=== PATIENT | female | born 1990 | race Two or more races ===

== ENCOUNTER 2020-04-10 10:23 | Emergency (ER) | payer OTHER ==
[~2020-04-10] VITALS: Ht 160 cm; Wt 65.0 kg
[2020-04-10 11:04] VITALS: BP 124/78
--- NOTE | 2020-04-10 11:30 | RAD ---
Examination: XR CHEST 1V History: Reason: cough, sore throat / Comparison/Correlation: None Findings: Frontal view chest was obtained. Heart size and pulmonary vasculature are normal. No infilt rate or effusion. No pneumothorax. Bony structures are unremarkable. Impression: No active disease. Electronically signed by: Yaw Bishop MD (04/10/2020 11:27 AM) [id number]
--- NOTE | 2020-04-10 11:53 | PHYS DOC ---
Past Medical History Past Medical History: No Pertinent History Past Surgical History: No Surgical History Smoking Status: Never Smoker Alcohol Use: None General Adult EDM: Chief Complaint: SORE THROAT HPI: HPI: Patient is a 30 year old female who presented to ER for evaluation of productive cough with green sputum, sore throat, nasal congestion for about 4 days. Patient is not sure if she been exposed to anybody who tested positive for COVID-19. Patient denies any abdominal pain, no nausea vomiting. Review of Systems: Review of Systems: Constitutional: Denies fever or chills. [] Eyes: Denies change in visual acuity. [] HENT: Positive for nasal congestion and sore throat Respiratory: Positive for cough, no trouble breathing Cardiovascular: Denies chest pain or edema. [] GI: Denies abdominal pain, nausea, vomiting, bloody stools or diarrhea. [] : Denies dysuria. [] Musculoskeletal: Denies back pain or joint pain. [] Integument: Denies rash. [] Neurologic: Denies headache, focal weakness or sensory changes. [] Endocrine: Denies polyuria or polydipsia. [] Lymphatic: Denies swollen glands. [] Psychiatric: Denies depression or anxiety. [] Heart Score: Risk Factors: Risk Factors: DM, Current or recent (<one month) smoker, HTN, HLP, family history of CAD, obesity. Risk Scores: Score 0 - 3: 2.5% MACE over next 6 weeks - Discharge Home Score 4 - 6: 20.3% MACE over next 6 weeks - Admit for Clinical Observation Score 7 - 10: 72.7% MACE over next 6 weeks - Early Invasive Strategies Physical Exam: PE: Constitutional: Well developed, well nourished, no acute distress, non-toxic appearance. [] HENT: Normocephalic, atraumatic, bilateral external ears normal, oropharynx moist, erythema with exudation, uvula is midline, nose with clear drainage. Eyes: PERRLA, EOMI, conjunctiva normal, no discharge. [] Neck: Normal range of motion, no tenderness, supple, no stridor. [] Cardiovascular:Heart rate regular rhythm, no murmur [] Lungs & Thorax: Bilateral breath sounds clear to auscultation [] Abdomen: Bowel sounds normal, soft, no tenderness, no masses, no pulsatile masses. [] Skin: Warm, dry, no erythema, no rash. [] Back: No tenderness, no CVA tenderness. [] Extremities: No tenderness, no cyanosis, no clubbing, ROM intact, no edema. [] Neurologic: Alert and oriented X 3, normal motor function, normal sensory function, no focal deficits noted. [] Psychologic: Affect normal, judgement normal, mood normal. [] Current Patient Data: Labs: Laboratory Tests Test 04/10/20 11:37 Influenza Type A Antigen Negative Influenza Type B Antigen Negative Vital Signs: Vital Signs Date Time Temp Pulse Resp B/P (MAP) Pulse Ox O2 Delivery O2 Flow Rate FiO2 04/10/20 11:04 98.4 93 16 124/78 (93) 97 Room Air 98.4 EKG: EKG: [] Radiology/Procedures: Radiology/Procedures: [][facility] [address] [place] [address] IMAGING REPORT Signed PATIENT: KAREL PATEL ACCOUNT: [id number] : 1990 LOCATION: ER AGE: 30 SEX: F EXAM STATUS: REG ER ORD. PHYSICIAN: CRIS GOMEZ DO REASON: cough, sore throat PROCEDURE: CHEST AP ONLY Examination: XR CHEST 1V History: Reason: cough, sore throat / Comparison/Correlation: None Findings: Frontal view chest was obtained. Heart size and pulmonary vasculature are normal. No infiltrate or effusion. No pneumothorax. Bony structures are unremarkable. Impression: No active disease. Electronically signed by: Yaw Peters MD (04/10/2020 11:27 AM) [id number] DICTATED and SIGNED BY: YAW PETERS MD DATE: 04/10/20 [id number] 0 Course & Med Decision Making: Course & Med Decision Making Pertinent Labs and Imaging studies reviewed. (See chart for details) [] Dragon Disclaimer: Dragon Disclaimer: This electronic medical record was generated, in whole or in part, using a voice recognition dictation system. Departure Departure Impression: Primary Impression: Acute tonsillitis Additional Impression: Person under investigation for COVID-19 Disposition: 01 DC HOME SELF CARE/HOMELESS Condition: STABLE Referrals: NO PCP (PCP) FOLLOW UP WITH YOUR DOCTOR NEEDED NEXT WEEK Patient Instructions: Tonsillitis Additional Instructions: You have been tested for or diagnosed with COVID-19. It is an infection caused by a new type of coronavirus. COVID-19 will cause cold-like or mild flu symptoms in most. It can cause more severe symptoms like problems breathing in some. There is no treatment for COVID-19. The body will clear the infection over time. Self-care will help to ease discomfort. Steps to Take: Self-Care Rest as needed. Healthy habits may help you feel better. Steps include: Choose healthy foods including fruits and vegetables. Drink water throughout the day. Get plenty of sleep each night. If you smoke, try to quit. It may ease breathing. Avoid alcohol. Keep Others Healthy The virus can spread to others. Droplets are released every time you sneeze or cough. The droplets can get into the mouth, nose, or eyes of people near you and lead to infection. To lower the chances of spreading COVID-19 to others: Stay at home until your doctor has said it is safe to leave. If you tested positive this will mean staying isolated until both of the following are true: At least 7 days have passed since the start of illness. You are free of fever for at least 72 hours without the use of medicine. During this time: - Avoid public areas, events, or transportation. Do not return to work or school until your doctor has said it is safe to do so. - Call ahead if you need to go to a medical center. Let them know you may have COVID-19. It will help them guide you where to go. They may also ask you to wear a facemask when you come to the office. - If you call for emergency medical services, let them know you may have COVID- 19. While at home: - Try to avoid close contact with others. Stay about 6 feet away. - If possible, spend most of your time in a separate room from others. - Use a face mask if you will be in close contact with others such as sharing a room or vehicle. - Have someone wipe down common surfaces in the home. Use household fence supervisor every day on areas like doorknobs, counters, or sinks. - Cough or sneeze into a tissue. Throw the tissue away right after use. If a tissue is not available, cough or sneeze into your elbow. - Wash your hands often. Wash them after sneezing or coughing. Use soap and water and wash for at least 20 seconds. Alcohol based hand assembly cleaner can be used if soap and water is not available. - Do not prepare food for others. Avoid sharing personal items like forks, spoons, or toothbrushes. - Avoid close contact with pets while you are sick. There is no evidence of the virus passing to pets. This is a safety step until more is known about this virus. Isolation can be frustrating. Social interaction can help. Keep in touch with friends and family through phone and tech options. You can still interact with others in your home, just keep a safe distance of about 6 feet. Follow-up: Your doctors office will check in with you to see if there are any changes in your health. You may be asked to keep track of symptoms to share with them. They will also let you know when you are clear to be in public again. Problems to Look Out For: Contact your doctor if your recovery is not going as you expect. Get emergency care if you have problems such as: - Trouble breathing - Nonstop chest pain or pressure - Changes in awareness, confusion, or problems waking - Lips or face have bluish color - Worsening of symptoms If you think you have an emergency, call for emergency medical services right away. [facility] Amoxicillin/Potassium Clav (AUGMENTIN 875-125 TABLET) 1 Each Tablet 1 TAB PO BID for 10 Days, #20 TAB 0 Refills Prov: CRIS GOMEZ DO 04/10/20 CRIS GOMEZ DO Apr 10, 2020 11:53
[2020-04-10 12:09] LABS: INFLUENZA A PATIENT NEGATIVE (NEGATIVE); INFLUENZA B PATIENT NEGATIVE (NEGATIVE)
[2020-04-10] MEDS ORDERED: AMOX1TAB61 PO (12:21)
--- NOTE | 2020-04-12 11:06 | NUR ---
IP: Attempted to contact pt concerning COVID results. Phone in not in service. No other number provided.
--- NOTE | 2020-04-12 13:42 | NUR ---
IP: Pt does not speak Spanish so her called to get results. informed him of her positive COVID test and the need to quarantine for 10 days. He verbalized understanding.
== END 2020-04-10 13:22 | disposition home or self-care (01) ==
LOC: ER 10:23
DX: U07.1 COVID-19 (principal); J03.90 Acute tonsillitis, unspecified
CPT/HCPCS: 71045; 87070; 87804; 87880; 99284; C9803; U0003